=== PATIENT | female | born 1980 | race American Indian/Alaskan Native ===

== ENCOUNTER 2018-07-30 09:53 | Emergency (ER) | payer OTHER ==
[~2018-07-30] VITALS: Ht 167.6 cm; Wt 70.3 kg
--- OUTSIDE RECORDS SUMMARY | ~2018-07-30 | XMS | Clinical Summary ---
Demographics + + + | Address | [address] | | | [place] [address] | + + + | Home Phone | | + + + | Preferred Language | Unknown | + + + | Marital Status | Single | + + + | Pentecostal Affiliation | Unknown | + + + | Race | Unknown | + + + | Ethnic Group | Unknown | + + + Author + + + | Author | [facility] | + + + | Organization | [facility] | + + + | Address | Unknown | + + + | Phone | Unavailable | + + + Support + + +---------+ + | Name | Relationship | Address | Phone | + + +---------+ + | Kalie Daniels | ECON | Unknown | | + + +---------+ + Care Team Providers + +------+ + | Care Special Education Teachers Name | Role | Phone | + [...]
--- OUTSIDE RECORDS SUMMARY | ~2018-07-30 | XMS | Clinical Summary ---
Demographics + + + | Address | [address] | | | [place] [address] | + + + | Home Phone | | + + + | Preferred Language | Unknown | + + + | Marital Status | Single | + + + | Jewish Affiliation | Unknown | + + + | Race | Unknown | + + + | Ethnic Group | Unknown | + + + Author + + + | Author | [facility] | + + + | Organization | [facility] | + + + | Address | Unknown | + + + | Phone | Unavailable | + + + Support + + +---------+ + | Name | Relationship | Address | Phone | + + +---------+ + | Kalie Daniels | ECON | Unknown | | + + +---------+ + Care Team Providers + +------+ + | Care Criminal Lawyer Name | Role | Phone | + [...]
[~2018-07-30 09:53] MED LIST: AMOXICILLIN500 MG PO; PREDNISONE20 MG PO; PROVENTIL HFA6.7 GM INH; SUDAFED 12-HOU120 MG PO
--- OUTSIDE RECORDS SUMMARY | 2018-07-30 09:56 | XMS ---
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 Raciel has no Care Guidelines for this patient. [facility] MO[facility]: Visits indicate total known visits. ED/C VISIT TRACKING (12 MO.) 07/30/2018 09:[address] [facility] [place] TYPE: Emergency COMPLAINT: - EAR PAIN/NON INJURY 07/02/2018 00:[address] 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
== END 2018-07-30 10:08 | disposition home or self-care (01) ==
LOC: ED 09:53
DX: H92.03 Otalgia, bilateral (principal)

== ENCOUNTER 2018-09-06 10:20 | Emergency (ER) | payer OTHER ==
[~2018-09-06] VITALS: Ht 167.6 cm; Wt 70.3 kg
--- OUTSIDE RECORDS SUMMARY | ~2018-09-06 | XMS | Clinical Summary ---
Demographics + + + | Address | [address] | | | [place] [address] | + + + | Home Phone | | + + + | Preferred Language | Unknown | + + + | Marital Status | Single | + + + | Latter Day Affiliation | Unknown | + + + | Race | Unknown | + + + | Ethnic Group | Unknown | + + + Author + + + | Author | [facility] | + + + | Organization | [facility] | + + + | Address | Unknown | + + + | Phone | Unavailable | + + + Support + + +---------+ + | Name | Relationship | Address | Phone | + + +---------+ + | Kalie Daniels | ECON | Unknown | | + + +---------+ + Care Team Providers + +------+ + | Care Commercial Finance Manager Name | Role | Phone | + +------+ + | Dr. Thomas | PP | Unavailable | + +------+ + Allergies Not on File Current Medications Not on file Active Problems Not on file Social History + +-------+ +--------+------+ | Tobacco [...] + Plan of Treatment Not on file Results Not on filefrom Last 3 Months"
--- OUTSIDE RECORDS SUMMARY | ~2018-09-06 | XMS | Clinical Summary ---
Demographics + + + | Address | [address] | | | [place] [address] | + + + | Home Phone | | + + + | Preferred Language | Unknown | + + + | Marital Status | Single | + + + | Caodaism Affiliation | Unknown | + + + | Race | Unknown | + + + | Ethnic Group | Unknown | + + + Author + + + | Author | [facility] | + + + | Organization | [facility] [employer] [facility] | + + + | Address | Unknown | + + + | Phone | Unavailable | + + + Support + + +---------+ + | Name | Relationship | Address | Phone | + + +---------+ + | Kalie Daniels | ECON | Unknown | | + + +---------+ + Care Team Providers + +------+ + | Care Section Gang Worker Name | Role | Phone | + [...]
--- OUTSIDE RECORDS SUMMARY | 2018-09-06 10:24 | XMS ---
PreManage Notification: JÚNIOR LAN Security Eligibility Clerk Events No recent Security Events currently on file CRITERIA MET - [facility] - [facility] ARSLAN BROWN Physician Asbestos Siding Mechanic: Medical 07/31/2018-Current PHONE: Unknown Raciel has no Care Guidelines for this patient. Care History Medical/Surgical 07/31/2018 [facility] \T\middot;\T\nbsp; PATIENT IS A [employer] MEMBER. \T\middot;\T\nbsp; PLEASE REFER PATIENT TO [facility] FOR NON EMERGENT MEDICAL NEEDS. \T\middot;\ T\nbsp; [facility] CAN SEE PATIENTS SAME DAY FOR APTS IF PATIENT CALLS FIRST THING IN THE MORNING. E.D. VISIT COUNT (12 MO.) 3 [facility] TOTAL 3 NOTE: Visits indicate total known visits. 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
[2018-09-06] MEDS ORDERED: CIPRODEX OTIC7.5 ML AD (10:37)
[2018-09-06] MEDS ORDERED: ARNUITY ELLIPT50 MCG NAS (10:38)
== END 2018-09-06 10:42 | disposition home or self-care (01) ==
LOC: ED 10:20
DX: R22.0 Localized swelling, mass and lump, head (principal)

== ENCOUNTER 2018-09-26 20:50 | Emergency (ER) | payer OTHER ==
[~2018-09-26] VITALS: Ht 167.6 cm; Wt 70.3 kg
--- OUTSIDE RECORDS SUMMARY | ~2018-09-26 | XMS | Encounter Summary ---
Demographics + + + | Address | [address] | | | [place] [address] | + + + | Home Phone | | + + + | Preferred Language | Unknown | + + + | Marital Status | Single | + + + | Buddhism Affiliation | Unknown | + + + | Race | Unknown | + + + | Ethnic Group | Unknown | + + + Author + + + | Author | [facility] | + + + | Organization | [facility] | + + + | Address | Unknown | + + + | Phone | Unavailable | + + + Support + + +---------+ + | Name | Relationship | Address | Phone | + + +---------+ + | Kalie Daniels | ECON | Unknown | | + + +---------+ + Care Team Providers + +------+ + | Care Ticket Marker Name | Role | Phone | + +------+ + | Dr. Thomas | PCP | Unavailable | + +------+ + Encounter Details +--------+ + + + + | Date | Type | Department | Care Team | Description | +--------+ + + + + | 09/11/ | Ancillary | [facility] | Andi Medrano MD | Murmur | | 2019 | Orders | ECHO | [address] [facility] | | | | | | [address] [place] | | | | | | [address] | | | | | | [phone] | | | | | | | | +--------+ + + + + Social History + +-------+ +--------+------+ | Tobacco Use | Types | Packs/Day | Years | Date | | | | | Used | | + +-------+ +--------+------+ | Never Assessed | | | | | + +-------+ +--------+------+ + + + | Sex Assigned at | Date Recorded | | | | + + + | Not on file | | + + + as of this encounter Plan of Treatment Not on fileas of this encounter Results ECHO outside interpretation standard (09/11/2018 1:59 PM) + + + | Impressions | Performed At | + + + | 1. Essentially normal study. 2. Overall left ventricular systolic | [facility] | | function is normal with, an EF between 60 - 65 %. | RADIOLOGY | + + + + + + | Narrative | Performed At | + + + | Patient Name: Jennyfer [place] Date of : 1980 | [facility] | | Performing Physician: Chiquis Sebastian | RADIOLOGY | | | | | INDICATIONS Murmur CONCLUSIONS 1. | | | Essentially normal study. 2. Overall left ventricular systolic | | | function is normal with, an EF between 60 - 65 %. FINDINGS | | | -------- ECG rhythm: Sinus rhythm. Study: A 2-dimensional | | | transthoracic echocardiogram with m-mode, spectral and color flow | | | Doppler was perfomed. Study: This was a technically adequate study. | | | Left Ventricle: Overall left ventricular systolic function is normal | | | with, an EF between 60 - 65 %. Left Ventricle: The left ventricle | | | cavity size is normal. Left Ventricle: Left ventricular wall | | | thickness is normal. Left Ventricle: No regional wall motion | | | abnormalities. Left Ventricle: The diastolic filling pattern is | | | normal for the age of the patient. Right Ventricle: The right | | | ventricle is normal in size. Left Atrium: The left atrium is normal | | | in size. Right Atrium: The right atrium is normal in size. Aortic | | | Valve: The aortic valve appears to be trileaflet. Aortic Valve: | | | There is no evidence of aortic regurgitation. Aortic Valve: There is | | | no evidence of aortic stenosis. Mitral Valve: The mitral valve is | | | normal. Mitral Valve: There is trace mitral regurgitation. | | | Tricuspid Valve: The tricuspid valve appears structurally normal. | | | Tricuspid Valve: Trace tricuspid regurgitation present. Tricuspid | | | Valve: There is no evidence of pulmonary hypertension. Tricuspid | | | Valve: The right ventricular systolic pressure (pulmonary artery | | | systolic pressure), as measured by Doppler, is 18.71mmHg. Pulmonic | | | Valve: The pulmonic valve is normal. Pulmonic Valve: | | | Trace pulmonic regurgitation. Pericardium: There is no pericardial | | | effusion. IVC/Hepatic Veins: The IVC is small (<1.5cm) and collapses | | | with sniff, consistent with central venous pressures of 0-5mmHg. | | | Aorta: The aortic root, ascending aorta and aortic arch are normal. | | | Mass: No mass visualized Thrombus: No clot visualized Thrombus: No | | | vegetation visualized. Septum: No ASD observed. Septum: No VSD | | | observed. MEASUREMENTS Ao asc: 2.89 cm Ao | | | Diam: 3.17 cm Ao sinus: 3.[address] junct: 2.99 cm | | | IVC: 1.00 cm EDV(Teich): 80.57 ml IVSd: 0.80 cm | | | LVIDd: 4.24 cm LVPWd: 0.97 cm LVOT Area: 3.29 cm2 LVOT | | | Diam: 2.04 cm %FS: 31.32 % EF(Teich): 59.50 % | | | ESV(Teich): 32.63 ml LVIDs: 2.91 cm SV(Teich): 47.94 ml | | | RV Major: 7.83 cm RV Minor: 3.35 cm RVIDd: 2.97 cm | | | LVEF MOD A2C: 64.06 % SV MOD A2C: 61.14 ml LVEF MOD A4C: | | | 57.61 % SV MOD A4C: 63.73 ml EF Biplane: 61.85 % LVEDV MOD | | | BP: 104.71 ml LVESV MOD BP: 39.94 ml LVEDV MOD A2C: | | | 95.44 ml LVLd A2C: 8.16 cm LVEDV MOD A4C: 110.61 ml LVLd | | | A4C: 8.52 cm LVESV MOD A2C: 34.29 ml LVLs A2C: 7.11 cm | | | LVESV MOD A4C: 46.88 ml LVLs A4C: 7.07 cm LAESV(A-L): | | | 60.10 ml LAESV Index (A-L): 33.02 ml/m2 LAAs A2C: 17.11 cm2 | | | LAESV A-L A2C: 47.45 ml LALs A2C: 5.24 cm LAAs A4C: | | | 20.93 cm2 LAESV A-L A4C: 73.49 ml LALs A4C: 5.06 cm | | | RAAs: 12.24 cm2 RAESV A-L: 28.58 ml RAESV MOD: 26.93 ml | | | RALs: 4.44 cm TAPSE: 2.62 cm AV maxP.92 mmHg AV | | | meanP.88 mmHg AV Vmax: 1.57 m/s AV Vmean: 1.15 m/s | | | AV VTI: 31.21 cm GARCIA Vmax: 2.49 cm2 GARCIA (VTI): 2.61 cm2 | | | AVAI Vmax: 0.00 cm2/m2 AVAI (VTI): 0.00 cm2/m2 LVOT | | | maxP.71 mmHg LVOT meanP.76 mmHg LVSI Dopp: 44.81 | | | ml/m2 LVSV Dopp: 81.57 ml LVOT Vmax: 1.19 m/s LVOT | | | Vmean: 0.75 m/s LVOT VTI: 24.78 cm MV A Navid: 0.66 m/s | | | MV Dec Gregory: 5.35 m/s2 MV DecT: 160.09 ms MV E Navid: | | | 0.85 m/s MV E/A Ratio: 1.29 MV PHT: 46.42 ms MVA By | | | PHT: 4.73 cm2 Septal e': 0.08 m/s Septal E/e': 10.06 | | | Lateral e': 0.12 m/s Lateral E/e': 6.62 RAP: 5 mmHg RV | | | S': 0.14 m/s RVSP: 18.70 mmHg TR maxP.70 mmHg TR | | | Vmax: 1.85 m/s Consulting Practice Director: Authenticated by: Chiquis Sebastian | | | Report Date/Time: 09-11-2018 17:25:7 | | + + + + + | Procedure Note | + + | [place], Rad Results In - 09/11/2018 5:25 PM PDT Patient Name: Kavon [place] of | | : 1980Accession: [id number] Physician: Chiquis | | Frye INDICATIONS | | -MurmurCONCLUSIONS 1. Essentially normal study.2. Overall left ventricular | | systolic function is normal with, an EF between 60 - 65 %.FINDINGS--------ECG rhythm: | | Sinus rhythm.Study: A 2-dimensional transthoracic echocardiogram with m-mode, spectral | | and color flow Doppler was perfomed. Study: This was a technically adequate study.Left | | Ventricle: Overall left ventricular systolic function is normal with, an EF between 60 - | | 65 %. Left Ventricle: The left ventricle cavity size is normal. Left Ventricle: Left | | ventricular wall thickness is normal. Left Ventricle: No regional wall motion | | abnormalities. Left Ventricle: The diastolic filling pattern is normal for the age of | | the patient.Right Ventricle: The right ventricle is normal in size.Left Atrium: The left | | atrium is normal in size.Right Atrium: The right atrium is normal in size. Aortic | | Valve: The aortic valve appears to be trileaflet. Aortic Valve: There is no evidence of | | aortic regurgitation. Aortic Valve: There is no evidence of aortic stenosis.Mitral | | Valve: The mitral valve is normal. Mitral Valve: There is trace mitral | | regurgitation.Tricuspid Valve: The tricuspid valve appears structurally normal. | | Tricuspid Valve: Trace tricuspid regurgitation present. Tricuspid Valve: There is no | | evidence of pulmonary hypertension. Tricuspid Valve: The right ventricular systolic | | pressure (pulmonary artery systolic pressure), as measured by Doppler, is | | 18.71mmHg.Pulmonic Valve: The pulmonic valve is normal. Pulmonic Valve: Trace pulmonic | | regurgitation.Pericardium: There is no pericardial effusion.IVC/Hepatic Veins: The IVC | | is small (<1.5cm) and collapses with sniff, consistent with central venous pressures of | | 0-5mmHg.Aorta: The aortic root, ascending aorta and aortic arch are normal.Mass: No mass | | visualizedThrombus: No clot visualized Thrombus: No vegetation visualized.Septum: No | | ASD observed. Septum: No VSD observed.MEASUREMENTS Ao asc: 2.89 cmAo Diam: | | 3.17 cmAo sinus: 3.[address] junct: 2.99 cmIVC: 1.00 cmEDV(Teich): 80.57 | | mlIVSd: 0.80 cmLVIDd: 4.24 cmLVPWd: 0.97 cmLVOT Area: 3.29 [id number] Diam: 2.04 | | cm%FS: 31.32 %EF(Teich): 59.50 %ESV(Teich): 32.63 mlLVIDs: 2.91 cmSV(Teich): | | 47.94 mlRV Major: 7.83 cmRV Minor: 3.35 cmRVIDd: 2.97 cmLVEF MOD A2C: 64.06 %SV | | MOD A2C: 61.14 mlLVEF MOD A4C: 57.61 %SV MOD A4C: 63.73 mlEF Biplane: 61.85 | | %LVEDV MOD BP: 104.71 mlLVESV MOD BP: 39.94 mlLVEDV MOD A2C: 95.44 mlLVLd A2C: | | 8.16 cmLVEDV MOD A4C: 110.61 mlLVLd A4C: 8.52 cmLVESV MOD A2C: 34.29 mlLVLs A2C: | | 7.11 cmLVESV MOD A4C: 46.88 mlLVLs A4C: 7.07 cmLAESV(A-L): 60.10 mlLAESV Index | | (A-L): 33.02 ml/m2LAAs A2C: 17.11 [id number] A-L A2C: 47.45 mlLALs A2C: 5.24 | | cmLAAs A4C: 20.93 ch8JQGGP A-L A4C: 73.49 mlLALs A4C: 5.06 cmRAAs: 12.24 | | [id number] A-L: 28.58 mlRAESV MOD: 26.93 mlRALs: 4.44 cmTAPSE: 2.62 cmAV maxPG: | | 9.92 mmHgAV meanP.88 mmHgAV Vmax: 1.57 m/Ru Vmean: 1.15 m/Ru VTI: 31.21 | | cmAVA Vmax: 2.49 cm2AVA (VTI): 2.61 si6PRWI Vmax: 0.00 cm2/m2AVAI (VTI): 0.00 | | cm2/m2LVOT maxP.71 mmHgLVOT meanP.76 mmHgLVSI Dopp: 44.81 ml/m2LVSV Dopp: | | 81.57 mlLVOT Vmax: 1.19 m/sLVOT Vmean: 0.75 m/sLVOT VTI: 24.78 cmMV A Navid: | | 0.66 m/sMV Dec Gregory: 5.35 m/s2MV DecT: 160.09 msMV E Navid: 0.85 m/sMV E/A Ratio: | | 1.29 MV PHT: 46.42 msMVA By PHT: 4.73 nh8Oulerg e': 0.08 m/sSeptal E/e': 10.06 | | Lateral e': 0.12 m/sLateral E/e': 6.62 RAP: 5 mmHgRV S': 0.14 m/sRVSP: 18.70 | | mmHgTR maxP.70 mmHgTR Vmax: 1.85 m/sSonographer: Authenticated by: Chiquis | | [facility] Date/Time: 09-11-2018 17:25:7IMPRESSION:1. Essentially normal study.2. Overall | | left ventricular systolic function is normal with, an EF between 60 - 65 %. | |Septum: No ASD observed. | |Septum: No VSD observed. | | | |MEASUREMENTS | | | |Ao asc: 2.89 cm | |Ao Diam: 3.17 cm | |Ao sinus: 3.30 cm | |Ao st junct: 2.99 cm | |IVC: 1.00 cm | |EDV(Teich): 80.57 ml | |IVSd: 0.80 cm | |LVIDd: 4.24 cm | |LVPWd: 0.97 cm | |LVOT Area: 3.29 cm2 | |LVOT Diam: 2.04 cm | |%FS: 31.32 % | |EF(Teich): 59.50 % | |ESV(Teich): 32.63 ml | |LVIDs: 2.91 cm | |SV(Teich): 47.94 ml | |RV Major: 7.83 cm | |RV Minor: 3.35 cm | |RVIDd: 2.97 cm | |LVEF MOD A2C: 64.06 % | |SV MOD A2C: 61.14 ml | |LVEF MOD A4C: 57.61 % | |SV MOD A4C: 63.73 ml | |EF Biplane: 61.85 % | |LVEDV MOD BP: 104.71 ml | |LVESV MOD BP: 39.94 ml | |LVEDV MOD A2C: 95.44 ml | |LVLd A2C: 8.16 cm | |LVEDV MOD A4C: 110.61 ml | |LVLd A4C: 8.52 cm | |LVESV MOD A2C: 34.29 ml | |LVLs A2C: 7.11 cm | |LVESV MOD A4C: 46.88 ml | |LVLs A4C: 7.07 cm | |LAESV(A-L): 60.10 ml | |LAESV Index (A-L): 33.02 ml/m2 | |LAAs A2C: 17.11 cm2 | |LAESV A-L A2C: 47.45 ml | |LALs A2C: 5.24 cm | |LAAs A4C: 20.93 cm2 | |LAESV A-L A4C: 73.49 ml | |LALs A4C: 5.06 cm | |RAAs: 12.24 cm2 | |RAESV A-L: 28.58 ml | |RAESV MOD: 26.93 ml | |RALs: 4.44 cm | |TAPSE: 2.62 cm | |AV maxP.92 mmHg | |AV meanP.88 mmHg | |AV Vmax: 1.57 m/s | |AV Vmean: 1.15 m/s | |AV VTI: 31.21 cm | |GARCIA Vmax: 2.49 cm2 | |GARCIA (VTI): 2.61 cm2 | |AVAI Vmax: 0.00 cm2/m2 | |AVAI (VTI): 0.00 cm2/m2 | |LVOT maxP.71 mmHg | |LVOT meanP.76 mmHg | |LVSI Dopp: 44.81 ml/m2 | |LVSV Dopp: 81.57 ml | |LVOT Vmax: 1.19 m/s | |LVOT Vmean: 0.75 m/s | |LVOT VTI: 24.78 cm | |MV A Navid: 0.66 m/s | |MV Dec Gregory: 5.35 m/s2 | |MV DecT: 160.09 ms | |MV E Navid: 0.85 m/s | |MV E/A Ratio: 1.29 | |MV PHT: 46.42 ms | |MVA By PHT: 4.73 cm2 | |Septal e': 0.08 m/s | |Septal E/e': 10.06 | |Lateral e': 0.12 m/s | |Lateral E/e': 6.62 | |RAP: 5 mmHg | |RV S': 0.14 m/s | |RVSP: 18.70 mmHg | |TR maxP.70 mmHg | |TR Vmax: 1.85 m/s | | | |Consulting Practice Director: | |Authenticated by: Chiquis Sebastian | |Report Date/Time: 09-11-2018 17:25:7 | | | |IMPRESSION: | |1. Essentially normal study. | |2. Overall left ventricular systolic function is normal with, an EF between 60 - 65 %. | + + + + + + + | Performing | Address | City/State/Zipcode | Phone Number | | Organization | | | | + + + + + | [facility] | [address] | [place] [address] | | + + + + + in this encounter Visit Diagnoses + + | Diagnosis | + + | Murmur | + + | Undiagnosed cardiac murmurs | + +"
--- OUTSIDE RECORDS SUMMARY | ~2018-09-26 | XMS | Clinical Summary ---
Demographics + + + | Address | [address] | | | [place] [address] | + + + | Home Phone | | + + + | Preferred Language | Unknown | + + + | Marital Status | Single | + + + | Alevism Affiliation | Unknown | + + + | Race | Unknown | + + + | Ethnic Group | Unknown | + + + Author + + + | Author | [facility] | + + + | Organization | [facility] | + + + | Address | Unknown | + + + | Phone | Unavailable | + + + Support + + +---------+ + | Name | Relationship | Address | Phone | + + +---------+ + | Kalie Daniels | ECON | Unknown | | + + +---------+ + Care Team Providers + +------+ + | Care Farm Owner Operator Name | Role | Phone | + +------+ + | Dr. Thomas | PP | Unavailable | + +------+ + Allergies Not on File Current Medications Not on file Active Problems Not on file Encounters +--------+ + + + + | Date | Type | Specialty | Care Team | Description | +--------+ + + + + | 09/11/ | Ancillary | | Andi Medrano MD | Murmur | | 2018 | Procedure | | | | +--------+ + + + + | 09/11/ | Ancillary | | Andi Medrano MD | Murmur | | 2019 | Orders | | | | +--------+ + + + + from Last 3 Months Social History + +-------+ +--------+------+ | Tobacco [...] on file | | + + + Plan of Treatment Not on file Procedures + +--------+ + + + | Procedure Name | Priori | Date/Time | Associated Diagnosis | Comments | | | ty | | | | + +--------+ + + + | ECHO OUTSIDE | Routin | 09/11/2018 | Murmur | Results for this | | INTERPRETATION | e | 1:59 PM | | procedure are in the | | STANDARD | | PDT | | results section. | + +--------+ + + + from Last 3 Months Results ECHO outside interpretation standard (09/11/2018 1:59 [...] Jennyfer [place] Date of : 1980 | [facility] | | Performing Physician: Chiquis Sebastian [...] 0.66 m/s | | | MV Dec [place]: 5.35 m/s2 MV DecT: 160.09 ms MV [...] TR | | | Vmax: 1.85 m/s Air Reduction Equipment Operator: Authenticated by: Chiquis Sebastian | | | Report Date/Time: 09-11-2018 17:25:7 | | + + + + + | Procedure Note | + + | [place], Rad Results In - 09/11/2018 5:25 PM PDT Patient Name: Kavon [place] of | | : 1980Accession: [id number] Physician: Chiquis | | Jaz INDICATIONS | | -MurmurCONCLUSIONS 1. Essentially normal [...] cmLVIDd: 4.24 cmLVPWd: 0.97 cmLVOT Area: 3.29 [id number] Diam: 2.04 | | cm%FS: 31.32 %EF(Teich): [...] | | (A-L): 33.02 ml/m2LAAs A2C: 17.11 [id number] A-L A2C: 47.45 mlLALs A2C: 5.24 | | cmLAAs A4C: 20.93 bp6TREQF A-L A4C: 73.49 mlLALs A4C: 5.06 cmRAAs: 12.24 | | os2XPFRL A-L: 28.58 mlRAESV MOD: 26.93 mlRALs: 4.44 cmTAPSE: 2.62 cmAV maxPG: | | 9.92 mmHgAV meanP.88 mmHgAV Vmax: 1.57 m/Ru Vmean: 1.15 m/Ru VTI: 31.21 | | cmAVA Vmax: 2.49 cm2AVA (VTI): 2.61 sm6JUNN Vmax: 0.00 cm2/m2AVAI (VTI): 0.00 | | cm2/m2LVOT maxP.71 mmHgLVOT meanP.76 mmHgLVSI Dopp: 44.81 ml/m2LVSV Dopp: | | 81.57 mlLVOT Vmax: 1.19 m/sLVOT Vmean: 0.75 m/sLVOT VTI: 24.78 cmMV A Navid: | | 0.66 m/sMV Dec [place]: 5.35 m/s2MV DecT: 160.09 msMV E Navid: 0.85 m/sMV E/A Ratio: | | 1.29 MV PHT: 46.42 msMVA By PHT: 4.73 [id number] e': 0.08 m/sSeptal E/e': 10.06 | | Lateral e': 0.12 m/sLateral E/e': 6.62 RAP: 5 mmHgRV S': 0.14 m/sRVSP: 18.70 | | mmHgTR maxP.70 mmHgTR Vmax: 1.85 m/sSonographer: Authenticated by: Chiquis | | [place] Date/Time: 09-11-2018 17:25:7IMPRESSION:1. Essentially normal study.2. Overall [...] A Navid: 0.66 m/s | |MV Dec [place]: 5.35 m/s2 | |MV DecT: 160.09 ms [...] |TR Vmax: 1.85 m/s | | | |Air Reduction Equipment Operator: | |Authenticated by: Chiquis Sebastian | |Report [...] | + + + + + | [facility] | [address] | [place] [id number] | | + + + + + from Last 3 Months"
--- OUTSIDE RECORDS SUMMARY | ~2018-09-26 | XMS | Encounter Summary ---
Demographics + + + | Address | [address] | | | [place] [address] | + + + | Home Phone | | + + + | Preferred Language | Unknown | + + + | Marital Status | Single | + + + | Anabaptist Affiliation | Unknown | + + + | Race | Unknown | + + + | Ethnic Group | Unknown | + + + Author + + + | Author | [facility] | + + + | Organization | [facility] | + + + | Address | Unknown | + + + | Phone | Unavailable | + + + Support + + +---------+ + | Name | Relationship | Address | Phone | + + +---------+ + | Kalie Daniels | ECON | Unknown | | + + +---------+ + Care Team Providers + +------+ + | Care Ultrasonic Welding Machine Operator Name | Role | Phone | + +------+ + | Dr. Thomas | PCP | Unavailable | + +------+ + Encounter Details +--------+ + + + + | Date | Type | Department | Care Team | Description | +--------+ + + + + | 09/11/ | Ancillary | [facility] | Andi Medrano MD | Murmur | | 2019 | Procedure | ECHO | [address] [facility] | | | | | | [address] [place] | | | | | | [address] | | | | | | [phone] | | | | | | | [...] Treatment Not on fileas of this encounter Procedures + +--------+ + + + | [...] section. | + +--------+ + + + in this encounter Results ECHO outside interpretation standard [...] Jennyfer [place] Date of : 1980 | [facility] | | Performing Physician: Chiquis Sebastian | [...] 0.66 m/s | | | MV Dec [place]: 5.35 m/s2 MV DecT: 160.09 ms MV [...] TR | | | Vmax: 1.85 m/s Bullet Swaging Machine Adjuster: Authenticated by: Chiquis Sebastian | | | Report Date/Time: 09-11-2018 17:25:7 | | + + + + + | Procedure Note | + + | Ky, Rad Results In 09/11/2018 5:25 PM PDT Patient Name: Kavon Houston of | | : 1980Accession: [id number] Physician: Chiquis | | Jaz INDICATIONS | [...] cmLVIDd: 4.24 cmLVPWd: 0.97 cmLVOT Area: 3.29 [id number] Diam: 2.04 | | cm%FS: 31.32 %EF(Teich): [...] | | (A-L): 33.02 ml/m2LAAs A2C: 17.11 ye8LAQHX A-L A2C: 47.45 mlLALs A2C: 5.24 | | cmLAAs A4C: 20.93 is9ZPKAL A-L A4C: 73.49 mlLALs A4C: 5.06 cmRAAs: 12.24 | | at8ZIAJO A-L: 28.58 mlRAESV MOD: 26.93 mlRALs: 4.44 cmTAPSE: 2.62 cmAV maxPG: | | 9.92 mmHgAV meanP.88 mmHgAV Vmax: 1.57 m/Ru Vmean: 1.15 m/Ru VTI: 31.21 | | cmAVA Vmax: 2.49 cm2AVA (VTI): 2.61 ty4HRLT Vmax: 0.00 cm2/m2AVAI (VTI): 0.00 | | cm2/m2LVOT maxP.71 mmHgLVOT meanP.76 mmHgLVSI Dopp: 44.81 ml/m2LVSV Dopp: | | 81.57 mlLVOT Vmax: 1.19 m/sLVOT Vmean: 0.75 m/sLVOT VTI: 24.78 cmMV A Navid: | | 0.66 m/sMV Dec [place]: 5.35 m/s2MV DecT: 160.09 msMV E Nvaid: 0.85 m/sMV E/A Ratio: | | 1.29 MV PHT: 46.42 msMVA By PHT: 4.73 an7Jhtrkj e': 0.08 m/sSeptal E/e': 10.06 | | [...] A Navid: 0.66 m/s | |MV Dec [place]: 5.35 m/s2 | |MV DecT: 160.09 ms [...] |TR Vmax: 1.85 m/s | | | |Bullet Swaging Machine Adjuster: | |Authenticated by: Chiquis Sebastian | |Report [...] [facility] | [address] | [place] [address] | | + + + + + in this encounter Visit Diagnoses + + | Diagnosis | + + | Murmur | + + | Undiagnosed cardiac murmurs | + +"
--- OUTSIDE RECORDS SUMMARY | ~2018-09-26 | XMS | Encounter Summary ---
Demographics + + + | Address | [address] | | | [place] [address] | + + + | Home Phone | | + + + | Preferred Language | Unknown | + + + | Marital Status | Single | + + + | Yazidi Affiliation | Unknown | + + + | Race | Unknown | + + + | Ethnic Group | Unknown | + + + Author + + + | Author | [facility] | + + + | Organization | [facility] | + + + | Address | Unknown | + + + | Phone | Unavailable | + + + Support + + +---------+ + | Name | Relationship | Address | Phone | + + +---------+ + | Kalie Daniels | ECON | Unknown | | + + +---------+ + Care Team Providers + +------+ + | Care Blow Moulding Machine Operator Name | Role | Phone [...] 2019 | Procedure | ECHO | [address] [facility] | | | | | | [address] [place] | | | | | | [address] | | | | | | [phone] | | | | | | | [...] Jennyfer [place] Date of : 1980 | [facility] | | Performing Physician: Chiquis Sebastian [...] 0.66 m/s | | | MV Dec [place]: 5.35 m/s2 MV DecT: 160.09 ms MV [...] TR | | | Vmax: 1.85 m/s Insurance Claims Analyst: Authenticated by: Chiquis Sebastian | | | Report Date/Time: 09-11-2018 17:25:7 | | + + + + + | Procedure Note | + + | Ky, Rad Results In 09/11/2018 5:25 PM PDT Patient Name: Kavon [place] of | | : 1980Accession: [id number] Physician: Chiquis | | Jaz INDICATIONS | [...] cmLVIDd: 4.24 cmLVPWd: 0.97 cmLVOT Area: 3.29 we7TYAG Diam: 2.04 | | cm%FS: 31.32 %EF(Teich): [...] | | (A-L): 33.02 ml/m2LAAs A2C: 17.11 fj1ZJONF A-L A2C: 47.45 mlLALs A2C: 5.24 | | cmLAAs A4C: 20.93 mr8DHQBR A-L A4C: 73.49 mlLALs A4C: 5.06 cmRAAs: 12.24 | | pg4MCCTZ A-L: 28.58 mlRAESV MOD: 26.93 mlRALs: 4.44 cmTAPSE: 2.62 cmAV maxPG: | | 9.92 mmHgAV meanP.88 mmHgAV Vmax: 1.57 m/Ru Vmean: 1.15 m/Ru VTI: 31.21 | | cmAVA Vmax: 2.49 cm2AVA (VTI): 2.61 zq5WDCL Vmax: 0.00 cm2/m2AVAI (VTI): 0.00 | | cm2/m2LVOT maxP.71 mmHgLVOT meanP.76 mmHgLVSI Dopp: 44.81 ml/m2LVSV Dopp: | | 81.57 mlLVOT Vmax: 1.19 m/sLVOT Vmean: 0.75 m/sLVOT VTI: 24.78 cmMV A Navid: | | 0.66 m/sMV Dec [place]: 5.35 m/s2MV DecT: 160.09 msMV E Navid: 0.85 m/sMV E/A Ratio: | | 1.29 MV PHT: 46.42 msMVA By PHT: 4.73 op3Uinfhk e': 0.08 m/sSeptal E/e': 10.06 | | [...] A Navid: 0.66 m/s | |MV Dec [place]: 5.35 m/s2 | |MV DecT: 160.09 ms [...] |TR Vmax: 1.85 m/s | | | |Insurance Claims Analyst: | |Authenticated by: Chiquis Sebastian | |Report [...] [facility] | [address] | [place] [address] | | + + + + + in this encounter Visit Diagnoses + + | Diagnosis | + + | Murmur | + + | Undiagnosed cardiac murmurs | + +"
--- OUTSIDE RECORDS SUMMARY | ~2018-09-26 | XMS | Encounter Summary ---
Demographics + + + | Address | [address] | | | [place] [address] | + + + | Home Phone | | + + + | Preferred Language | Unknown | + + + | Marital Status | Single | + + + | Religion Affiliation | Unknown | + + + | Race | Unknown | + + + | Ethnic Group | Unknown | + + + Author + + + | Author | [facility] | + + + | Organization | [facility] | + + + | Address | Unknown | + + + | Phone | Unavailable | + + + Support + + +---------+ + | Name | Relationship | Address | Phone | + + +---------+ + | Kalie Daniels | ECON | Unknown | | + + +---------+ + Care Team Providers + +------+ + | Care Instrument Sterilizer Name | Role | Phone | + [...] 2019 | Orders | ECHO | [address] [facility] | | | | | | [address] [place] | | | | | | [address] | | | | | | [phone] | | | | | | | [...] Jennyfer [place] Date of : 1980 | [facility] | | Performing Physician: Chiquis Sebastian [...] 0.66 m/s | | | MV Dec [place]: 5.35 m/s2 MV DecT: 160.09 ms MV [...] TR | | | Vmax: 1.85 m/s Truck Rental Clerk: Authenticated by: Chiquis Sebastian | | | Report Date/Time: 09-11-2018 17:25:7 | | + + + + + | Procedure Note | + + | Ky, Rad Results In - 09/11/2018 5:25 PM PDT Patient Name: Kavon [place] of | | : 1980Accession: [id number] Physician: Chiquis | | Frye INDICATIONS | [...] cmLVIDd: 4.24 cmLVPWd: 0.97 cmLVOT Area: 3.29 [id number] Diam: 2.04 | | cm%FS: 31.32 %EF(Teich): [...] | | (A-L): 33.02 ml/m2LAAs A2C: 17.11 qv2BUHVD A-L A2C: 47.45 mlLALs A2C: 5.24 | | cmLAAs A4C: 20.93 tq7GLRDW A-L A4C: 73.49 mlLALs A4C: 5.06 cmRAAs: 12.24 | | bz5XFKNK A-L: 28.58 mlRAESV MOD: 26.93 mlRALs: 4.44 cmTAPSE: 2.62 cmAV maxPG: | | 9.92 mmHgAV meanP.88 mmHgAV Vmax: 1.57 m/Ru Vmean: 1.15 m/Ru VTI: 31.21 | | cmAVA Vmax: 2.49 cm2AVA (VTI): 2.61 xn8SBSG Vmax: 0.00 cm2/m2AVAI (VTI): 0.00 | | cm2/m2LVOT maxP.71 mmHgLVOT meanP.76 mmHgLVSI Dopp: 44.81 ml/m2LVSV Dopp: | | 81.57 mlLVOT Vmax: 1.19 m/sLVOT Vmean: 0.75 m/sLVOT VTI: 24.78 cmMV A Navid: | | 0.66 m/sMV Dec [place]: 5.35 m/s2MV DecT: 160.09 msMV E Navid: 0.85 m/sMV E/A Ratio: | | 1.29 MV PHT: 46.42 msMVA By PHT: 4.73 ue1Kluckm e': 0.08 m/sSeptal E/e': 10.06 | | Lateral e': 0.12 m/sLateral E/e': 6.62 RAP: 5 mmHgRV S': 0.14 m/sRVSP: 18.70 | | mmHgTR maxP.70 mmHgTR Vmax: 1.85 m/sSonographer: Authenticated by: Chiquis | | [facility] Date/Time: 09-11-2018 17:25:7IMPRESSION:1. Essentially normal study.2. Overall [...] A Navid: 0.66 m/s | |MV Dec [place]: 5.35 m/s2 | |MV DecT: 160.09 ms [...] |TR Vmax: 1.85 m/s | | | |Truck Rental Clerk: | |Authenticated by: Chiquis Sebastian | |Report [...] [facility] | [address] | [place] [address] | | + + + + + in this encounter Visit Diagnoses + + | Diagnosis | + + | Murmur | + + | Undiagnosed cardiac murmurs | + +"
--- OUTSIDE RECORDS SUMMARY | ~2018-09-26 | XMS | Clinical Summary ---
Demographics + + + | Address | [address] | | | [place] [address] | + + + | Home Phone [...] + + + | Author | [facility] | + + + | Organization | [facility] | + + + | Address | Unknown | + + + | Phone | Unavailable | + + + Support + + +---------+ + | Name | Relationship | Address | Phone | + + +---------+ + | Kalie Daniels | ECON | Unknown | | + + +---------+ + Care Team Providers + +------+ + | Care Pyrotechnics Press Tender Name | Role | Phone | + [...] Jennyfer [place] Date of : 1980 | [facility] | | Performing Physician: Chiquis Sebastian | [...] 0.66 m/s | | | MV Dec [place]: 5.35 m/s2 MV DecT: 160.09 ms MV [...] TR | | | Vmax: 1.85 m/s Industrial Sewer: Authenticated by: Chiquis Sebastian | | | Report Date/Time: 09-11-2018 17:25:7 | | + + + + + | Procedure Note | + + | Ky, Rad Results In - 09/11/2018 5:25 PM PDT Patient Name: Kavon [place] of | | : 1980Accession: [id number] Physician: Chiquis | | Jaz INDICATIONS | [...] cmLVIDd: 4.24 cmLVPWd: 0.97 cmLVOT Area: 3.29 bz9TKVY Diam: 2.04 | | cm%FS: 31.32 %EF(Teich): [...] | | (A-L): 33.02 ml/m2LAAs A2C: 17.11 zt2QLJFO A-L A2C: 47.45 mlLALs A2C: 5.24 | | cmLAAs A4C: 20.93 ao6DPAVV A-L A4C: 73.49 mlLALs A4C: 5.06 cmRAAs: 12.24 | | yd7PKFSK A-L: 28.58 mlRAESV MOD: 26.93 mlRALs: 4.44 cmTAPSE: 2.62 cmAV maxPG: | | 9.92 mmHgAV meanP.88 mmHgAV Vmax: 1.57 m/Ru Vmean: 1.15 m/Ru VTI: 31.21 | | cmAVA Vmax: 2.49 cm2AVA (VTI): 2.61 jn8QEOU Vmax: 0.00 cm2/m2AVAI (VTI): 0.00 | | cm2/m2LVOT maxP.71 mmHgLVOT meanP.76 mmHgLVSI Dopp: 44.81 ml/m2LVSV Dopp: | | 81.57 mlLVOT Vmax: 1.19 m/sLVOT Vmean: 0.75 m/sLVOT VTI: 24.78 cmMV A Navid: | | 0.66 m/sMV Dec [place]: 5.35 m/s2MV DecT: 160.09 msMV E Navid: 0.85 m/sMV E/A Ratio: | | 1.29 MV PHT: 46.42 msMVA By PHT: 4.73 tn4Zxvzmq e': 0.08 m/sSeptal E/e': 10.06 | | [...] A Navid: 0.66 m/s | |MV Dec [place]: 5.35 m/s2 | |MV DecT: 160.09 ms [...] |TR Vmax: 1.85 m/s | | | |Industrial Sewer: | |Authenticated by: Chiquis Sebastian | |Report [...] | [address] | [place] [address] | | + + + + + from Last 3 Months"
[~2018-09-26 20:50] MED LIST changes: +ARNUITY ELLIPT50 MCG NAS; +CIPRODEX OTIC7.5 ML AD
--- OUTSIDE RECORDS SUMMARY | 2018-09-26 20:52 | XMS ---
PreManage Notification: JÚNIOR LAN Security Yard Manager Events No recent Security Events currently on file CRITERIA MET - [facility] - Has Care Guidelines - [facility] - 2 Visits in 30 Days CARE PROVIDERS ARSLAN BROWN Physician Parole Agent: Medical 07/31/2018-Current PHONE: Unknown Raciel has no Care Guidelines for this patient. Care History Medical/Surgical 07/31/2018 [facility] \T\middot;\T\nbsp; PATIENT IS A [employer] MEMBER. \T\middot;\T\nbsp; PLEASE REFER PATIENT TO [facility] FOR NON EMERGENT MEDICAL NEEDS. \T\middot;\ T\nbsp; [facility] CAN SEE PATIENTS SAME DAY FOR APTS IF PATIENT CALLS FIRST THING IN THE MORNING. [facility] MO.) [facility] TOTAL 5 NOTE: Visits indicate total known visits. ED/UCC VISIT TRACKING (12 MO.) 09/26/2018 20:[address] [facility] [place] TYPE: Emergency COMPLAINT: - EAR PAIN 09/06/2018 10:21 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
== END 2018-09-27 00:17 | disposition home or self-care (01) ==
LOC: ED 20:50
DX: H92.03 Otalgia, bilateral (principal); Z91.018 Allergy to other foods; Z90.49 Acquired absence of other specified parts of digestive tract
CPT/HCPCS: 99282